=== PATIENT | male | born 1970 | race Caucasian/White ===

== ENCOUNTER 2019-05-31 15:28 | Emergency (ER) | payer BC ==
--- NOTE | 2019-05-31 15:28 | EDM.PDOC ---
ED HPI GENERAL MEDICAL PROBLEM - General Stated Complaint: POSSIBLE CHEST PAIN Time Seen by Provider: 05/31/19 15:35 Source of Information: Reports: Patient History Limitations: Reports: No Limitations - History of Present Illness INITIAL COMMENTS - FREE TEXT/NARRATIVE: This 48 yo male patient was sent to the ED from the [facility] after his visit with them. The [facility] Provider reported that the patient had been seen there today due to a 1 week history of a cough and burning chest pain. The patient was discharged from the clinic with Tessalon Pearls, Magic Mouthwash, Pepcid and Prednisone. The patient had an EKG done during the clinic visit which was read as a Sinus Rhythm with ST elevation (possibly early repolarization) along with some prolongation of the QT. Apparently, the EKG reading came back after the patient had left the clinic. The patient was called and reported to the ED. The patient reports he has been having chest tightness over the past week with an increase in his symptoms today. The patient reports he has a family history of cardiac events (both mother and father had cardiac issues). The patient reports he recently went through a break-up with a person he had been with for the past 3.5 years. 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 ED EXAM, GENERAL - Physical Exam Exam: See Below Exam Limited By: No Limitations General Appearance: Alert, WD/WN, Anxious, Moderate Distress Eye Exam: Bilateral Eye: EOMI, Normal Inspection, PERRL Ears: Normal External Exam, Normal Canal, Hearing Grossly Normal, Normal TMs Nose: Normal Inspection, Normal Mucosa, No Blood Throat/Mouth: Normal Inspection, Normal Lips, Normal Teeth, Normal Gums, Normal Voice, No Airway Compromise, Other (posterior pharynx is slightly erythematous ( no exudates or transudates)) Head: Atraumatic, Normocephalic Neck: Normal Inspection, Supple, Non-Tender, Full Range of Motion Respiratory/Chest: No Respiratory Distress, Lungs Clear, Normal Breath Sounds, No Accessory Muscle Use, Chest Non-Tender Cardiovascular: Normal Peripheral Pulses, Regular Rate, Rhythm, No Edema, No Gallop, No JVD, No Murmur, No Rub GI/Abdominal: Normal Bowel Sounds, Soft, Non-Tender, No Organomegaly, No Distention, No Abnormal Bruit, No Mass (Male) Exam: Deferred Rectal (Males) Exam: Deferred Back Exam: Normal Inspection, Full Range of Motion, NT Extremities: Normal Inspection, Normal Range of Motion, Non-Tender, Normal Capillary Refill, No Pedal Edema Neurological: Alert, Oriented, CN II-XII Intact, Normal Cognition, Normal Gait, Normal Reflexes, No Motor/Sensory Deficits Psychiatric: Normal Affect, Normal Mood Skin Exam: Warm, Dry, Intact, Normal Color, No Rash Lymphatic: No Adenopathy Course - Vital Signs Last Recorded V/S: Last Vital Signs Temp 37.1 C 05/31/19 15:28 Pulse 104 H 05/31/19 15:28 Resp 19 05/31/19 15:28 BP 159/95 H 05/31/19 15:28 Pulse Ox 95 05/31/19 15:28 - Orders/Labs/Meds Orders: Active Orders 24 hr Category Date Time Status EKG Documentation Completion [RC] URGENT Care 05/31/19 15:42 Ordered Labs: Laboratory Tests 05/31/19 05/31/19 Range/Units 15:55 15:55 WBC 5.6 (5.0-10.0) 10^3/uL RBC 4.98 (4.6-6.2) 10^6/uL Hgb 14.6 (14.0-18.0) g/dL Hct 44.2 (40.0-54.0) % MCV 88.8 (80-100) fL MCH 29.3 (27.0-34.0) pg MCHC 33.0 (33.0-35.0) g/dL Plt Count 214 (150-450) 10^3/uL Neut % (Auto) 72.3 (42.2-75.2) % Lymph % (Auto) 19.5 L (20.5-50.1) % [place] % (Auto) 7.5 (2-8) % Eos % (Auto) 0.5 L (1.0-3.0) % Baso % (Auto) 0.2 (0.0-1.0) % Sodium 137 (135-145) mmol/L Potassium 4.1 (3.6-5.0) mmol/L Chloride 103 (101-111) mmol/L Carbon Dioxide 25.0 (21.0-31.0) mmol/L Anion Gap 13.1 BUN 17 (7-18) mg/dL Creatinine 0.9 (0.6-1.3) mg/dL Est Cr Clr Drug Dosing 90.58 mL/min Estimated GFR (MDRD) > 60 BUN/Creatinine Ratio 18.88 Glucose 109 H (74-105) mg/dL Calcium 8.9 (8.4-10.2) mg/dl Total Bilirubin 0.7 (0.2-1.0) mg/dL AST 21 (10-42) IU/L ALT 31 (10-60) IU/L Alkaline Phosphatase 46 (42-121) IU/L Troponin I 0.01 (0.00-0.08) ng/mL Total Protein 7.9 (6.7-8.2) g/dl Albumin 4.1 (3.2-5.5) g/dl Globulin 3.8 Albumin/Globulin Ratio 1.08 Meds: Medications Discontinued Medications Generic Name Dose Route Start Last Admin Trade Name Freq PRN Reason Stop Dose Admin Aspirin 324 mg 05/31/19 15:53 05/31/19 16:01 Aspirin PO 05/31/19 15:54 324 mg ONETIME ONE Administration Departure - Departure Time of Disposition: 16:31 Disposition: Home, Self-Care 01 Condition: Good Clinical Impression: Nonspecific chest pain Instructions: Nonspecific Chest Pain, [id number] Forms: ED Department Discharge Care Plan Goals: The patient was advised of the examination, lab and EKG results during the visit. The patient was given a dose of Aspirin while in the ED. The patient was encouraged to continue with the medications previously given to him. If the patient has any additional symptoms or concerns, the patient should either return to the emergency department or visit his primary care facility. - My Orders Last 24 Hours: My Active Orders 05/31/19 15:42 EKG Documentation Completion [RC] URGENT - Assessment/Plan Last 24 Hours: My Active Orders 05/31/19 15:42 EKG Documentation Completion [RC] URGENT
[2019-05-31] MEDS ORDERED: Aspirin 81 MG Tab.Chew PO ONE (15:53)
[2019-05-31 16:21] LABS: ANION GAP 13.1; CHLORIDE,CL 103 mmol/L (101-111); SODIUM,NA 137 mmol/L (135-145)
== END 2019-05-31 16:41 | disposition home or self-care (01) ==
LOC: DL.ED 15:28
DX: R07.89 Other chest pain (principal)
CPT/HCPCS: 36415; 80053; 84484; 85025; 93005; 99285; A9270